=== PATIENT | male | born 1980 ===

== ENCOUNTER 2023-12-25 15:49 | Emergency (ER) | payer BC, SELFPAY ==
[2023-12-25 15:50] VITALS: BP 149/89
[2023-12-25] MEDS: TYLENOL 1000 MG PO (15:53)
[2023-12-25 16:58] VITALS: BP 128/67
--- NOTE | 2023-12-25 18:16 | ED.GENMED ---
History of Present Illness
General
Chief Complaint: Cold/Flu/URI Symptoms
Source: patient and family
Time Seen by Provider: 12/25/23 17:56
History of Present Illness
History of Present Illness:
43-year-old male who describes a 8-day history of nasal congestion, intermittent headache, and nonproductive cough associate with bodyaches and fever. He went to an urgent care on Wednesday, COVID and flu is negative, and he was prescribed a Medrol
Dosepak which she finished yesterday. His symptoms were getting better with the exception of his cough which is gotten progressively worse. He returned to work on Wednesday, attended and Wednesday, but notes cough is much worse today and he
is very tired. He has a leftover albuterol inhaler that he has been using with some relief of cough. He is not short of breath. He denies chest pain, sore throat, trouble swallowing, ear pain, neck pain, photophobia, nausea, vomiting, anorexia,
or other complaints.
Past History
Past History
ED Past Medical History: None
ED Past Surgical History: None
Social History
Tobacco: Non-smoker
Alcohol: None
Drug: None
Personal:
Living: with family
Employment: Employed
Phy Exam
Physical Exam
Physical Exam:
GENERAL: Alert , in no apparent distress
EYE: pupils equal and reactive, no photophobia, EOMI
NECK: Supple, slight right-sided anterior adenopathy.
ENT: o/p clr, mmm, no trismus, no drool, voice clear, TMs clear bilaterally.
CARDIAC: Regular rate and rhythm .
LUNGS: Equal breath sounds bilaterally, no acute respiratory distress, no wheezes or rhonchi, very slight Rales noted at right base
ABDOMEN: Soft, without focal tenderness, no r/g, no cvat
NEUROLOGICAL: Alert and oriented, no focal neuro deficits
SKIN: Warm and dry, skin intact.
MUSCULOSKELETAL: No edema, well perfused.
PSYCH: Normal and appropriate interaction.
Course
Orders/Labs/Results
Orders:
Orders
12/25/23 15:53
Acetaminophen [Tylenol] 1,000 mg PO NOW STA
12/25/23 15:54
Acetaminophen [Tylenol] 1,000 mg .ROUTE .STK-MED ONE
12/25/23 18:16
Doxycycline [Vibramycin] 100 mg PO NOW STA
Vital Signs
Initial and Last Documented VS:
Initial Vital Signs
Temp Pulse Resp BP Pulse Ox
100.8 F H 110 20 149/89 95
12/25/23 15:50 12/25/23 15:50 12/25/23 15:50 12/25/23 15:50 12/25/23 15:50
Last Documented Vital Signs
Temp Pulse Resp BP Pulse Ox
99.8 F 89 16 128/67 99
12/25/23 16:58 12/25/23 16:58 12/25/23 16:58 12/25/23 16:58 12/25/23 16:58
*Critical Care Note
Total Time (30-74mins, 75-104mins- exclusive of procedures): Not Applicable
Update Note
Update Note:
Patient presents to the Emergency Department with __cough
Number and Complexity of Problems Addressed at the Encounter
� Chronic conditions affecting care:
� Acute Exacerbation and/or Progression of Chronic Illness:
� Differential Diagnosis includes: But not limited to bronchitis, pneumonia, viral illness, etc. etc.
Amount and/or Complexity of Data to be Reviewed and Analyzed
� I performed an independent evaluation of and my interpretation is:
EKG:
CT:
Xrays:
Laboratory Studies:
Other:
� Review of other/old records reveals:
� Clinical information was obtained by an independent historian: Mother who is bedside
� Prescriptions/Medications Considered but not given:
� Further testing considered but not performed:
Risk of Complications and/or Morbidity or Mortality of Patient Management
� Social determinants of health affecting care:
� Discussion with other providers (PCP, Hospitalists, Consultants, etc):
� Escalation of care including admission/observation vs risk of discharge considered: Clinically I suspect a small pneumonia, recommend antibiotics and will refill his inhaler. He is clinically very overall well-appearing,
stable. He has an obvious nonproductive cough here but is not dyspneic, speaks in full sentences, normal respiratory status with pulse ox. Discussed with patient and mother importance of follow-up and to return to the ER.
ED Attending Note
-
Portions of this chart may have been created with voice recognition software.� Occasional wrong word or��sound alike� substitutions may have occurred due to the inherent limitations of voice recognition software.
Discharge Plan
Departure
Patient Disposition: Home (Routine Discharge)
Date of Disposition: 12/25/23
Time of Disposition: 18:17
Patient with high blood pressure during this ER visit?: Yes
Condition: Good
Discharge Problem:
Pneumonia
Instructions: BLOOD PRESSURE, Pneumonia
Prescriptions:
New
doxycycline hyclate 100 mg capsule
100 mg PO BID Qty: 20 0RF
albuterol sulfate 90 mcg/actuation HFA aerosol inhaler
2 puff inhalation Q6H PRN (Reason: shortness of breath or wheezing) Qty: 8.5 0RF
Referrals:
Vamsi Ordaz, [Family Provider] - Follow up in 2-3 days
Activity Restrictions/Additional Instructions:
IF YOU DEVELOP SHORTNESS OF BREATH, CHEST PAIN, DIZZINESS, SWELLING, GET WORSE, DO NOT GET BETTER, OR OTHER WORRISOME SIGNS, PLEASE RETURN TO THE ER IMMEDIATELY.
Discharge Date and Time
Print Language: OMANI
[2023-12-25 18:36] VITALS: BP 132/89
[2023-12-25] MEDS: VIBRAMYCIN 100 MG PO (18:36)
== END 2023-12-25 18:59 | disposition home or self-care (01) ==
LOC: EMR 15:49
PROVIDERS: EMERGENCY PHYSICIAN Emergency Medicine; FAMILY PHYSICIAN Family Medicine
DX: J18.9 Pneumonia, unspecified organism (principal)
CPT/HCPCS: 99282